=== PATIENT | male | born 1990 | race Caucasian/White ===

== ENCOUNTER 2017-09-30 15:50 | Emergency (ER) | payer OTHER ==
--- NOTE | 2017-09-30 15:54 | PDOC ---
Rapid Medical Evaluation Time Seen by Provider: 09/30/17 15:52 Medical Evaluation: I have performed a brief in-person evaluation of this patient. The patient presents with a chief complaint of: sore throat x 2 weeks, congestion Pertinent physical exam findings: tonsils appear normal; suspect allergies I have ordered the following: rapid strep The patient will proceed to the ED for further evaluation. Discharge Disposition - Diagnosis Sore throat - Referrals - Patient Instructions - Post Discharge Activity
[2017-09-30 15:55] VITALS: BP 140/82; PULSE 83; TEMP 98.5; BMI 33.6
--- NOTE | 2017-09-30 16:27 | PDOC ---
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 He has tried mucinex, warm tea, soup , nyquil, zyrtec and benadryl for his symptoms with little relief. States he had high fever this past Wednesday and Wednesday. Denies chills, ear ache, cough, n/ v/d. Past History - Travel Traveled outside of the country in the last 30 days: No Close contact w/someone who was outside of country & ill: No - Past Medical History Allergies/Adverse Reactions: Allergies Allergy/AdvReac Type Severity Reaction Status Date / Time No Known Allergies Allergy Verified 09/30/17 15:52 Home Medications: Ambulatory Orders Amoxicillin - [Amoxicillin 500mg Capsule -] 500 mg PO BID #14 capsule 09/30/17 COPD: No Hypercholesterolemia: Yes - Suicide/Smoking/Psychosocial Hx Smoking History: Never smoked Have you smoked in the past 12 months: No Information on smoking cessation initiated: No Hx Alcohol Use: No Drug/Substance Use Hx: No Substance Use Type: None Review of Systems - Review of Systems Able to Perform ROS?: Yes Comments:: 09/30/17 16:22 CONSTITUTIONAL: Present: subjective fever Absent: fever, chills, diaphoresis, generalized weakness, malaise, loss of appetite HEENT: Present: sore throat, nasal congestion Absent: rhinorrhea, throat swelling, difficulty swallowing, mouth swelling, ear pain, eye pain, visual Changes RESPIRATORY: Absent: cough, shortness of breath, dyspnea with exertion, orthopnea, wheezing, stridor, hemoptysis GASTROINTESTINAL: Absent: abdominal pain, abdominal distension, nausea, vomiting, diarrhea, constipation, melena, hematochezia SKIN: Absent: rash, itching, pallor NEUROLOGIC: Absent: headache, focal weakness or paresthesias, dizziness, unsteady gait, seizure, mental status changes, bladder or bowel incontinence Is the patient limited [place] Islander proficient: No *Physical Exam - Vital Signs Last Vital Signs Temp Pulse Resp BP Pulse Ox 98.5 F 83 18 140/82 100 09/30/17 15:53 09/30/17 15:53 09/30/17 15:53 09/30/17 15:53 09/30/17 15:53 - Physical Exam Comments: 09/30/17 16:28 GENERAL: Well developed, well nourished. Awake and alert. No acute distress. HEENT: Normocephalic, atraumatic. PERRLA, EOMI. No conjunctival pallor. Sclera are non- icteric. Moist mucous membranes. Oropharynx with mild tonsilar erythema NECK: Supple. Full ROM. No JVD. Carotid pulses 2+ and symmetric, without bruits. No thyromegaly. No lymphadenopathy. CARDIOVASCULAR: Regular rate and rhythm. No murmurs, rubs, or gallops. Distal pulses are 2+ and symmetric. PULMONARY: No evidence of respiratory distress. Lungs clear to auscultation bilaterally. No wheezing, rales or rhonchi. SKIN: Warm and dry. Normal capillary refill. No rashes. No jaundice. NEUROLOGICAL: Alert, awake, appropriate. Cranial nerves 2-12 intact. No deficits to light touch and temperature in face, upper extremities and lower extremities. No motor deficits in the in face, upper extremities and lower extremities. Normoreflexic in the upper and lower extremities. Normal speech. Toes are down- going bilaterally. Gait is normal without ataxia. Medical Decision Making - Medical Decision Making 09/30/17 16:38 Pt. is a 26 y/o M who presents with 2 weeks of sore throat. Will give motrin at this time. Rapid strep from E pending at this time. 09/30/17 16:54 (+) rapid strep. Will dc home with amoxicillin at this time. Return precautions given. Pt understands all dc instructions and all questions were answered. *DC/Admit/Observation/Transfer Diagnosis at time of Disposition: Strep pharyngitis - Discharge Dispostion Disposition: HOME Condition at time of disposition: Stable Decision to Admit order: No - Referrals Referrals: George Joseph MD [Primary Care Provider] - - Patient Instructions Printed Discharge Instructions: DI for Strep Throat Additional Instructions: You have strep throat. This is a bacterial infection. Please take the amoxicillin 500 mg twice a day for one week. Please finish the prescription even if you feel better. You may take Motrin 800 mg every 8 hours as needed for pain or fever. Warm water gargles and cough drops and just may also help her symptoms. Please throw way your toothbrush 3 days into treatment to prevent reinfection. Please follow up with your primary care doctor next week. Return to emergency department if you have worsening pain, difficulty swallowing , changes in your voice, lightheadedness, dizziness, or any changes in your symptoms. - Post Discharge Activity Forms/Work/School Notes: Back to Work
[2017-09-30] MEDS ORDERED: IBUPROFEN 400 MG TABLET (FP) PO ONE ×2 (16:33→16:37)
[2017-09-30] MEDS ORDERED: AMOXICILLIN 500 MG CAPSULE (FP) PO ONE (16:53)
[2017-09-30] MEDS ORDERED: AMOXICILLIN 250 MG CAPSULE ONE (16:57)
== END 2017-09-30 16:59 | disposition home or self-care (01) ==
LOC: JERFT 15:50
DX: J02.0 Streptococcal pharyngitis (principal); B95.0 Streptococcus, group A, as the cause of diseases classified elsewhere
CPT/HCPCS: 87070; 87077; 87430; 99281-25

== ENCOUNTER 2017-11-24 11:15 | Emergency (ER) | payer OTHER ==
[2017-11-24 11:26] VITALS: BP 125/62; PULSE 105; TEMP 98.7; BMI 35.5
--- NOTE | 2017-11-24 12:29 | PDOC ---
History of Present Illness - General Chief Complaint: Sore Throat Stated Complaint: FEVER, THROAT PAIN (EMPLOYEE) Time Seen by Provider: 11/24/17 11:54 - History of Present Illness Initial Comments: 11/24/17 12:09 CHIEF COMPLAINT: throat pain HISTORY OF PRESENT ILLNESS: 27 M with no PMH presents to fast track with throat pain since yesterday and fever this morning. Patient states he took one Aleve this morning and started taking amoxicillin he got "leftover from my dad" last night. Denies any change in voice, difficulty eating or breathing, runny nose, cough, chest pain, SOB. PAST MEDICAL HISTORY: Denies past medical history FAMILY HISTORY: Denies SOCIAL HISTORY: Denies tobacco, alcohol, illicit drug use. SURGICAL HISTORY: Denies ALLERGIES: No known drug allergies REVIEW OF SYSTEMS General/Constitutional: Denies fever or chills. Denies weakness, weight change. HEENT: Denies change in vision. Denies ear pain or discharge. Denies sore throat. Cardiovascular: Denies chest pain or shortness of breath. Respiratory: Denies cough, wheezing, or hemoptysis. Gastrointestinal: Denies nausea, vomiting, diarrhea or constipation. Denies rectal bleeding. Genitourinary: Denies dysuria, frequency, or change in urination. Musculoskeletal: Denies joint or muscle swelling or pain. Denies neck or back pain. Skin and breasts: Denies rash or easy bruising. Neurologic: Denies headache, vertigo, loss of consciousness, or loss of sensation. Psychiatric: Denies depression or anxiety. Endocrine: Denies increased thirst. Denies abnormal weight change. Hematologic/Lymphatic: Denies anemia, easy bleeding, or history of blood clots. Allergic/Immunologic: Denies hives or skin allergy. Denies latex allergy. PHYSICAL EXAM General Appearance: Well-appearing, appropriately dressed. No apparent distress , no intoxication. HEENT: Mildly erythematous oropharynx. NO SMALL WIND ENERGY INSTALLER appreciated. EOMI, PERRLA, normal voice, TMs normal No conjunctival pallor. No photophobia, scleral icterus. Neck: Supple. Trachea midline. No tenderness, rigidity, carotid bruit, stridor , lymphadenopathy, or thyromegaly. Respiratory/Chest: Lungs CTAB. No shortness of breath, chest tenderness, respiratory distress, accessory muscle use. No crackles, rales, rhonchi, stridor , wheezing, dullness Cardiovascular: RRR. S1, S2. No JVD, murmur, bradycardia, tachycardia. Vascular Pulses: Dorsalis-Pedis (R): 2+, Dorsalis-Pedis (L): 2+ Gastrointestinal/Abdominal: Normal bowel sounds. Abdomen soft, non-distended. No tenderness or rebound tenderness. No organomegaly, pulsatile mass, guarding , hernia, hepatomegaly, splenomegaly. Lymphatic: No adenopathy, tenderness. Musculoskeletal/Extremities: Normal inspection. FROM of all extremities, normal capillary refill. Pelvis Stable. No CVA tenderness. No tenderness to extremities, pedal edema, swelling, erythema or deformity. Integumentary: Appropriate color, dry, warm. No cyanosis, erythema, jaundice or rash Neurologic: folder machine adjuster II-XII intact. Fully oriented, alert. Appropriate mood/affect. Motor strength 5/5. No appreciable EOM palsy, facial droop or sensory deficit. Past History - Past History Allergies/Adverse Reactions: Allergies No Known Allergies Allergy (Verified 11/24/17 11:23) Home Medications: Ambulatory Orders Biotin 10,000 mcg PO DAILY 11/24/17 Cholecalciferol (Vitamin D3) [Vitamin D3] 1,000 unit PO DAILY 11/24/17 Cyanocobalamin (Vitamin B-12) [Vitamin B12] 2,500 mcg PO DAILY 11/24/17 Valerian Root 500 mg PO DAILY 11/24/17 Immunization Status Up to Date: Yes Tetanus Status: Unknown - Social History Smoking Status: Never smoked *Physical Exam - Vital Signs Last Vital Signs Temp Pulse Resp BP Pulse Ox 98.7 F 105 H 18 125/62 97 11/24/17 11:23 11/24/17 11:23 11/24/17 11:23 11/24/17 11:23 11/24/17 11:23 Medical Decision Making - Medical Decision Making 11/24/17 12:29 27 M with no PMH presents to fast track with throat pain since yesterday and fever this morning. -rapid strep *DC/Admit/Observation/Transfer Diagnosis at time of Disposition: Pharyngitis - Discharge Dispostion Disposition: HOME Condition at time of disposition: Stable Decision to Admit order: No - Referrals - Patient Instructions Printed Discharge Instructions: DI for Viral Pharyngitis Additional Instructions: Your strep test was negative. Please continue taking Aleve or Motrin for throat pain. Stop taking the amoxicillin as that may cause antibiotic resistance when taken unnecessarily. If you develop uncontrollable fever, vomiting, difficulty speaking or breathing, change in voice, or any new or worsening symptoms, please return to the ER. - Post Discharge Activity
== END 2017-11-24 12:43 | disposition home or self-care (01) ==
LOC: JERFT 11:15
DX: J02.9 Acute pharyngitis, unspecified (principal)
CPT/HCPCS: 87070; 87430; 99281-25

== ENCOUNTER 2018-03-11 12:55 | Emergency (ER) | payer OTHER ==
[2018-03-11 13:00] VITALS: BP 146/62; PULSE 96; TEMP 98.2; BMI 35.5
[2018-03-11] MEDS ORDERED: DIPHTH,PERTUSS(ACELL),TET 0.5 ML DISP.SYRIN IM ONE (14:29)
--- NOTE | 2018-03-11 14:29 | PDOC ---
History of Present Illness - General Chief Complaint: Injury Stated Complaint: LACERATION Time Seen by Provider: 03/11/18 14:11 History Source: Patient Exam Limitations: No Limitations - History of Present Illness Initial Comments: CHIEF COMPLAINT: 27 y/o male with possible laceration to right great toe. HISTORY OF PRESENT ILLNESS: Patient states approximately 15 hours ago (last night), he injured his right great toe when he kicked the shower drain and it hit him in the toe. He states at the base of his nail he sustained a cut that was bleeding. The bleeding has resolved. He now has pain in the area of the cut. He denies fever, streaking. He doesn't believe he's had a tetanus shot in the past 10 years. Vital signs on arrival are within normal limits REVIEW OF SYSTEMS: GENERAL/CONSTITUTIONAL: No fever/chills. No weakness. No weight change. MUSCULOSKELETAL: +right big toe pain. No neck or back pain. SKIN: No rash or easy bruising. NEUROLOGIC: No headache, vertigo, loss of consciousness, or loss of sensation. PHYSICAL EXAM: VITAL_SIGNS: within normal limits GENERAL_APPEARANCE: alert, cooperative, no obvious discomfort. MENTAL_STATUS: speech clear, oriented X 3, responds appropriately to questions. NEURO: motor intact and sensory intact in injured extremity. EXTREMITIES: Right great toe without swelling or erythema. Base of nail bed of right great toe is a horizontal laceration along cuticle that has already started primary intention. Pressure exerted on wound and margins remain closed. No active bleeding. TTP to the area of the laceration Full flexion and extension of affected toe. SKIN: warm, dry, good color. Past History - Past Medical History Allergies/Adverse Reactions: Allergies Allergy/AdvReac Type Severity Reaction Status Date / Time No Known Allergies Allergy Verified 11/24/17 11:23 Home Medications: Ambulatory Orders Biotin 10,000 mcg PO DAILY 11/24/17 Cholecalciferol (Vitamin D3) [Vitamin D3] 1,000 unit PO DAILY 11/24/17 Cyanocobalamin (Vitamin B-12) [Vitamin B12] 2,500 mcg PO DAILY 11/24/17 Valerian Root 500 mg PO DAILY 11/24/17 COPD: No Hypercholesterolemia: Yes - Immunization History Immunization Up to Date: Yes - Suicide/Smoking/Psychosocial Hx Smoking History: Never smoked Have you smoked in the past 12 months: No Hx Alcohol Use: No Drug/Substance Use Hx: No Substance Use Type: None *Physical Exam - Vital Signs Last Vital Signs Temp Pulse Resp BP Pulse Ox 98.2 F 96 H 16 146/62 98 03/11/18 12:58 03/11/18 12:58 03/11/18 12:58 03/11/18 12:58 03/11/18 12:58 Medical Decision Making - Medical Decision Making A/P: 27 y/o male with healing wound to right big toe. No need for sutures. Will give tetanus as patient is not UTD. Patient instructed to keep the area clean and dry and apply ice to help with swelling/pain. The patient verbalizes understanding of all instructions, has no further questions and is awaiting discharge. *DC/Admit/Observation/Transfer Diagnosis at time of Disposition: Laceration of toe - Discharge Dispostion Disposition: HOME Condition at time of disposition: Good - Referrals Referrals: George Joseph MD [Primary Care Provider] - - Patient Instructions Printed Discharge Instructions: DI for Minor Laceration Additional Instructions: Discharge Instructions: -Keep area clean and dry -Apply ice to affected toe to help with swelling and pain -You were given a tetanus shot today; you are now up to date for 10 years - Post Discharge Activity
== END 2018-03-11 14:57 | disposition home or self-care (01) ==
LOC: JERFT 12:55
PROC: 3E0234Z Introduction of Serum, Toxoid and Vaccine into Muscle, Percutaneous Approach (ICD-10-PCS; principal; 2018-03-11)
DX: S91.211A Laceration without foreign body of right great toe with damage to nail, initial encounter (principal); W22.8XXA Striking against or struck by other objects, initial encounter; Y93.E1 Activity, personal bathing and showering; Y92.031 Bathroom in apartment as the place of occurrence of the external cause; Y99.8 Other external cause status
CPT/HCPCS: 90715; 99281-25

== ENCOUNTER 2018-10-03 09:08 | Emergency (ER) | payer OTHER | END 2018-10-03 11:19 | disposition home or self-care (01) | LOC: JERFT 09:08 ==

== ENCOUNTER 2020-10-01 08:35 | Emergency (ER) | payer OTHER ==
[2020-10-01 08:53] VITALS: BP 158/79; PULSE 84; TEMP 98.6; BMI 29.0
[2020-10-01] MEDS ORDERED: IBUPROFEN 600 MG TABLET (FP) PO ONE ×2 (09:14)
== END 2020-10-01 09:35 | disposition home or self-care (01) ==
LOC: JER 08:35
DX: R51.9 Headache, unspecified (principal)
CPT/HCPCS: 99283-25; C9803; U0003; U0005

== ENCOUNTER 2024-12-01 08:22 | Emergency (ER) | payer OTHER ==
[2024-12-01 08:47] VITALS: BP 117/66; PULSE 78; RESP 18; TEMP 98.4; BMI 31.4
[2024-12-01 09:42] LABS: THROAT:GRP A STREP NOT DETECTED (NOTDETECTED)
== END 2024-12-01 09:18 | disposition home or self-care (01) ==
LOC: JERFT 08:22 → JER 08:22 → JERFT 09:18
DX: U07.1 COVID-19 (principal); R05.9 Cough, unspecified; M79.10 Myalgia, unspecified site; R68.83 Chills (without fever)
CPT/HCPCS: 87637-QW; 87651; 99283-25